=== PATIENT | male | born 1970 | race Caucasian/White ===

== ENCOUNTER 2019-09-24 11:30 | Emergency (ER) | payer BC ==
[2019-09-24 11:38] VITALS: BP 121/79; PULSE 75; TEMP 98; BMI 26.8
[2019-09-24] MEDS ORDERED: KETOROLAC TROMETHAMINE 60 MG/2 ML VIAL IM ONE (12:11)
[2019-09-24] MEDS ORDERED: KETOROLAC TROMETHAMINE 60 MG/2 ML VIAL ONE (12:15)
--- NOTE | 2019-09-24 12:22 | PDOC ---
History of Present Illness - General Chief Complaint: Pain Stated Complaint: RT GROIN PAIN Time Seen by Provider: 09/24/19 11:39 History Source: Patient Exam Limitations: No Limitations - History of Present Illness Is this a multiple visit Asthma Patient?: No Associated Symptoms: denies: fever/chills, nausea/vomiting, rash Past History - Travel Traveled outside of the country in the last 30 days: No Close contact w/someone who was outside of country & ill: No - Past Medical History Allergies/Adverse Reactions: Allergies Allergy/AdvReac Type Severity Reaction Status Date / Time No Known Allergies Allergy Verified 09/24/19 11:38 Home Medications: Ambulatory Orders Ibuprofen 800 mg PO ACDIN 7 Days #21 tablet 09/24/19 COPD: No - Psycho Social/Smoking Cessation Hx Smoking History: Never smoked Review of Systems - Review of Systems Constitutional: No: Chills, Fever : Yes: Other (R groin). No: Burning, Dysuria, Frequency, Flank Pain, Hematuria, Incontinence, Pain, Urgency, Testicular Mass, Testicular Swelling, Lesions, Testicular Pain *Physical Exam - Vital Signs Last Vital Signs Temp Pulse Resp BP Pulse Ox 98 F 75 18 121/79 99 09/24/19 11:36 09/24/19 11:36 09/24/19 11:36 09/24/19 11:36 09/24/19 11:36 - Physical Exam General Appearance: Yes: Nourished Respiratory/Chest: positive: Lungs Clear, Normal Breath Sounds Cardiovascular: positive: Regular Rate, S1, S2 Gastrointestinal/Abdominal: positive: Normal Bowel Sounds Male Genitalia: positive: other (+ b/l 2+ femoral pulses, + tenderness with palpalble quarter sized lump on straining in R groin on palpation, no palpalbe hernia.). 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, Fully Oriented, Alert, Normal Mood/ Affect, Normal Response, Motor Strength 5/5 ED Treatment Course - RADIOLOGY Radiology Studies Ordered: Category Date Time Status PELVIS(OTHER) US [US] Stat Ultrasound 09/24/19 12:13 Ordered - Medications Given in the ED: ED Medications Discontinued Medications Generic Name Dose Route Start Last Admin Trade Name Freq PRN Reason Stop Dose Admin Ketorolac Tromethamine 60 mg 09/24/19 12:11 09/24/19 12:18 Toradol Injection - IM 09/24/19 12:12 60 mg ONCE ONE Administration Medical Decision Making - Medical Decision Making 09/24/19 12:22 49 years old male with no prior medical history presents with acute pain to the right groin after lifting heavy cables (100lbs) at work yesterday for 3 hrs straight. Patient denies testicular discomfort or pain. He denies any lower extremity weakness or history of inguinal hernia. Exam consist of tenderness in the right groin with lump, distal pulses intact. suspect hernia pt requesting imaging UA obtained sonogram to rule out inguinal hernia obtained. Pelvic sonogram confirming right inguinal hernia. Patient referred to general surgery for further evaluation. He was advised to avoid heavy lifting until seen by general surgery inguinal hernia belt recommended 09/24/19 14:55 09/24/19 15:09 Discharge - Discharge Information Problems reviewed: Yes Clinical Impression/Diagnosis: Inguinal hernia Qualifiers: Obstruction and gangrene presence: without obstruction or gangrene Laterality: unilateral Recurrence: not specified as recurrent Qualified Code(s): K40.90 - Unilateral inguinal hernia, without obstruction or gangrene, not specified as recurrent Condition: Stable Disposition: HOME - Admission No - Additional Discharge Information Prescriptions: Ibuprofen 800 mg PO ACDIN 7 Days #21 tablet Prescription Drug Monitoring Program (I-STOP) results: I-STOP not reviewed - Follow up/Referral Referrals: Eduardo Almodovar MD [Primary Care Provider] - Nicolas Wadsworth MD [Staff Physician] - - Patient Discharge Instructions Patient Printed Discharge Instructions: DI for Groin Hernia Additional Instructions: He had an ultrasound done today that confirmed a right inguinal hernia. Please follow-up with general surgery for further evaluation. Refrain from heavy lifting as this could make the hernia worsen. Take Tylenol Motrin for pain Follow-up with primary care doctor. Return to the emergency room if worsening symptoms occurs - Post Discharge Activity
[2019-09-24 12:53] LABS: HYALINE CASTS 3 /lpf (0-8); URINE APPEARANCE CLEAR; URINE BACTERIA 0.2 /hpf (NEGATIVE); URINE BILIRUBIN NEGATIVE (NEGATIVE); URINE COLOR YELLOW; URINE GLUCOSE (UA) TRACE (NEGATIVE); URINE KETONE NEGATIVE (NEGATIVE); URINE LEUK ESTERASE NEGATIVE (NEGATIVE); URINE NITRITE NEGATIVE (NEGATIVE); URINE PROTEIN 1+ (NEGATIVE); URINE RBC 41 /hpf (0-4); URINE UROBILINOGEN 0.2 mg/dL (0.2-1.0); URINE WBC 1 /hpf (0-5)
== END 2019-09-24 15:09 | disposition home or self-care (01) ==
LOC: JERFT 11:30
PROC: 3E0233Z Introduction of Anti-inflammatory into Muscle, Percutaneous Approach (ICD-10-PCS; principal; 2019-09-24)
DX: K40.90 Unilateral inguinal hernia, without obstruction or gangrene, not specified as recurrent (principal); X50.9XXA Other and unspecified overexertion or strenuous movements or postures, initial encounter; Y93.89 Activity, other specified; Y92.89 Other specified places as the place of occurrence of the external cause; Y99.0 Civilian activity done for income or pay
CPT/HCPCS: 76856-TC; 81003; 87086; 99283-25